=== PATIENT | female | born 1945 | race Caucasian/White ===

== ENCOUNTER 2016-11-22 11:56 | Outpatient (CLI) ==
[2016-10-12 16:42] VITALS: BMI 29.9
[2016-11-22 12:20] LABS: BASOPHILS % (AUTO) 0.3 % (0.0-3.0); EOSINOPHILS # (AUTO) 0.1 K/ul (0.0-0.7); EOSINOPHILS % (AUTO) 1.8 % (0.0-7.0); HEMATOCRIT 39.7 % (37.0-47.0); HEMOGLOBIN 12.8 g/dl (12.0-16.0); IMMATURE GRANULOCYTE % (AUTO) 0.1 % (0.0-5.0); LYMPHOCYTES # (AUTO) 2.3 K/uL (0.60-3.4); LYMPHOCYTES % (AUTO) 34.6 (10.0-50.0); MEAN CORPUSCULAR HEMOGLOBIN 30.1 pg (27.0-31.0); MEAN CORPUSCULAR HGB CONC 32.2 (31.8-35.4); MEAN CORPUSCULAR VOLUME 93.4 fl (81.0-99.0); MONOCYTES # (AUTO) 0.5 K/uL (0.4-2.0); MONOCYTES % (AUTO) 7.5 (0-10); NEUTROPHILS # (AUTO) 3.7 K/ul (2.0-6.9); NEUTROPHILS % (AUTO) 55.7; PLATELET COUNT 256 10^3/uL (140-440); RED BLOOD COUNT 4.25 10^6/ul (4.20-5.40)
== END 2016-11-22 11:57 | disposition home or self-care (01) ==
LOC: LAB 11:56
PROVIDERS: ATTEND Emergency Medicine
DX: D64.9 Anemia, unspecified (principal)
CPT/HCPCS: 36415; 85025

== ENCOUNTER 2017-01-11 08:38 | Day surgery (SDC) ==
[2016-10-12 16:42] VITALS: BMI 29.9
[2017-01-11 09:22] VITALS: TEMP 98.2
[2017-01-11] MEDS ORDERED: LIDOCAINE 2% 20 ML MDV ONE (09:24)
[2017-01-11] MEDS ORDERED: LIDOCAINE 1% 20 ML MDV ID ONE (09:24)
[2017-01-11] MEDS ORDERED: ALBUTEROL 0.083% NEB NEB STA (09:28)
[2017-01-11] MEDS ORDERED: VERSED ONE (10:30)
[2017-01-11] MEDS ORDERED: LIDOCAINE HCL 2% LUER-JET ONE (10:30)
[2017-01-11] MEDS ORDERED: DIPRIVAN 20 ML VIAL IVP ONE (10:30)
[2017-01-11 11:42] VITALS: BP 158/82
--- NOTE | 2017-01-12 10:56 | OP ---
INDICATIONS FOR PROCEDURE: She had an episode of melena back in September. She has a history of chronic anemia. She also has a history of abnormal polyps with last colonoscopy over three years ago. She presents for colonoscopy and endoscopy exam. MEDICATIONS: SEE ANESTHESIA NOTES. PROCEDURE: 1. ENDOSCOPY INDONESIAN DILATATION 2. COLONOSCOPY, SNARE POLYPECTOMY REPORT: The risks, benefits, alternatives and limitations were discussed in detail with the patient. Informed consent was obtained. After adequate sedation was achieved, the video endoscope was introduced in the posterior pharynx and esophagus under direct vision and easily advanced down to the third portion of the duodenum. I then slowly withdrew. The duodenal mucosa appeared unremarkable as did the duodenal bulb. The antrum and body were relatively unremarkable. The scope was retroflexed to look at the cardia and fundus which revealed a hiatal hernia. The scope was anteflexed and withdrawn back through the esophagus it is was about a 3cm hiatal hernia. There is a mucosa ring at the GE junction causing mild luminal narrowing. The esophageal mucosa was otherwise unremarkable. Advance the scope back down the gastric lumen and place a guidewire and withdrew the scope. Then the over guidewire, I easily advanced a 54 English [place]ian dilator. The patient tolerated the procedure well with stable vital signs and pulse oximetry throughout. The patient's bed was turned and a digital rectal examined revealed good tone and no masses. The colonic scope was introduced to the rectum and was advanced under directed visual guidance to the cecum. The cecum was identified by the appendiceal orifice and IC valve. I then noticed a small polyp in the ascending colon about 5-6mm in size and sessile, this was in the distal mid-ascending and I removed it by snare technique. I then slowly withdrew the scope in circumferential manner and examined the mucosa quite carefully. I looked on the proximal and distal side of the folds and flexures as best as possible. I sent the retroflex scope in the right colon and the left colon to increase visualization. I noted no other abnormalities other then small and large mild diverticulitis carried throughout the entire colon from the hepatic flexure down the sigmoid. No other abnormalities were noted including on retroflex view of the anal canal. The prep was good. The withdraw time after polypectomy was 6 minutes and 5 seconds. The patient tolerated the procedure well with stable vital signs and pulse oximetry throughout. IMPRESSION: 1. Hiatal hernia 2. Esophageal ring dilated as above 3. Small colon polyp removed 4. Noguera-diverticulosis RECOMMENDATIONS: 1. Reflux precautions 2. Await polyp pathology, if it is benign as expected recommended repeat colonoscopy again in 5 years. 3. High fiber diet 4. Will see back in office as needed CC: Dr. Tata BARAKAT
== END 2017-01-11 12:00 | disposition home or self-care (01) ==
LOC: SURG 08:38
PROVIDERS: ATTEND Internal Medicine Gastroenterology
DX: Z86.010 Personal history of colon polyps (principal); D12.2 Benign neoplasm of ascending colon; D64.89 Other specified anemias; K92.1 Melena; K57.30 Diverticulosis of large intestine without perforation or abscess without bleeding; K22.2 Esophageal obstruction; K44.9 Diaphragmatic hernia without obstruction or gangrene
CPT/HCPCS: 94640

== ENCOUNTER 2017-09-21 06:40 | Outpatient (CLI) ==
[2016-10-12 16:42] VITALS: BMI 29.9
--- NOTE | 2017-09-21 08:17 | CT ---
EXAM: CT chest with contrast HISTORY: Lung nodule COMPARISON: 10/11/2016 TECHNIQUE: CT chest performed with intravenous contrast. Coronal and sagittal reformatted images ob tained. FINDINGS: The thoracic inlet unremarkable. Heart normal in size. Aorta normal in caliber. Moderat e calcified and noncalcified atherosclerosis. Visualized portion upper abdomen demonstrates no acute abnormality. Colonic diverticulosis, incompletely imaged. No acute abnormalities of the bones. De generative change in the spine. Central airway patent. No airspace consolidation. No pleural effus ion. No pneumothorax. Granulomatous calcification. Moderate hiatal hernia. There is a 1.1 x 0.9 cm nodule in the right lower lobe that appears slightly increased from prior examination. Mild left api becky scarring. IMPRESSION: 1. 1.1 cm nodule right lower that has slightly increased in size from 10/11/2016. This is indetermin ate. Recommend further evaluation with PET CT, tissue sampling, or CT follow-up in 3 months. 2. No acute cardiopulmonary process. 3. Moderate hiatal hernia.
== END 2017-09-21 06:41 | disposition home or self-care (01) ==
LOC: RAD 06:40
PROVIDERS: ATTEND Internal Medicine
DX: R91.8 Other nonspecific abnormal finding of lung field (principal)

== ENCOUNTER 2018-01-20 12:43 | Outpatient (CLI) ==
[2016-10-12 16:42] VITALS: BMI 29.9
== END 2018-01-20 12:44 | disposition home or self-care (01) ==
LOC: RAD 12:43
PROVIDERS: ATTEND Internal Medicine
DX: Z12.31 Encounter for screening mammogram for malignant neoplasm of breast (principal)
CPT/HCPCS: 77067

== ENCOUNTER 2018-02-20 06:20 | Outpatient (CLI) ==
[2016-10-12 16:42] VITALS: BMI 29.9
--- NOTE | 2018-02-20 08:49 | CT ---
EXAM: CT THORAX HISTORY: Lung nodule follow-up. TECHNIQUE: CT thorax with intravenous contrast. Multiplanar images presented. 100 ml Visipaque 320 COMPARISON: 09/21/2017 FINDINGS: Normal heart size. No pericardial effusion. Moderately severe atherosclerotic disease. There is a posterior right lower lobe nodule with no definite calcification measuring 8.6 x 8.0 x 8.7 mm. This does not appear to be enlarged since previous exam allowing for differences in measuring [place]. Chronic-appearing interstitial changes and scattered areas of minimal discoid atelectasis. Lungs are otherwise unremarkable. No vascular congestion or pleural fluid. The bones are within normal limits. There is a small to moderate sized para esophageal hernia. Inci dental note of splenic flexure diverticulosis. IMPRESSION: 1. No definite interval enlargement of the right lower lobe nodule since previous exam. This nodule remains indeterminate in etiology (benign versus malignant). 2. Atherosclerotic disease. 3. Para esophageal hernia.
== END 2018-02-20 06:21 | disposition home or self-care (01) ==
LOC: RAD 06:20
PROVIDERS: ATTEND Internal Medicine
DX: R91.1 Solitary pulmonary nodule (principal)
CPT/HCPCS: 36415; 82565

== ENCOUNTER 2019-02-22 13:29 | Outpatient (CLI) ==
[2016-10-12 16:42] VITALS: BMI 29.9
--- NOTE | 2019-02-23 09:48 | MAMMO ---
EXAM: Digital screening mammogram with tomosynthesis HISTORY: Screening COMPARISON: 01/20/2018 FINDINGS: Digital MLO and CC views of the right and left breast were performed. Tomosynthesis was performed. Computer aided detection utilized. There are scattered fibroglandular densities. Benign bilateral calcifications. There is no evidence for mass, asymmetry, distortion, or suspicious calci fications in either breast. IMPRESSION: 1. No evidence of malignancy in the right or left breast. 2. Annual screening mammogram is recommended in one year. BIRADS category 2, benign
== END 2019-02-22 13:30 | disposition home or self-care (01) ==
LOC: RAD 13:29
PROVIDERS: ATTEND Internal Medicine
DX: Z12.31 Encounter for screening mammogram for malignant neoplasm of breast (principal)